=== PATIENT | female | born 1950 | race Caucasian/White ===

== ENCOUNTER → 2018-11-09 14:01 | Outpatient (CLI) | payer MEDICARE, OTHER, SELFPAY ==
[2016-07-24 13:09] VITALS: BMI 27.2
--- NOTE | 2018-11-09 14:10 | RAD_ITS ---
STUDY: X-RAY - PELVIS AND RIGHT HIP REASON FOR EXAM: Female, 68 years old. Pain, decreased range of motion TECHNIQUE: 3 views of the pelvis and hip. COMPARISON: None. FINDINGS: There is a non-specific bowel gas pattern. Normal visualized soft tissue structures. Normal bilateral iliac wings, sacroiliac joints and visualized sacrum. Normal bilateral superior and inferior pubic rami. Normal pubic symphysis. Normal bilateral ischial tuberosities. Normal visualized femoral head. Normal acetabulum. Normal hip joint. RAD/HIP, UNI W/ Pelvis 2-3 Views IMPRESSION: Normal x-ray examination of the pelvis and hip. Electronically Signed: Dedrick Hall MD at 14:33 EDT , Service support ,
== END ==
PROVIDERS: Family Provider Internal Medicine; PCP Internal Medicine; Referring Provider Anesthesiology Pain Medicine; Visit Provider Anesthesiology Pain Medicine
DX: M25.559 Pain in unspecified hip (principal)
CPT/HCPCS: 73502

== ENCOUNTER → 2018-11-23 16:56 | Outpatient (CLI) | payer MEDICARE, OTHER, SELFPAY ==
--- NOTE | 2018-11-23 17:30 | MRI_ITS ---
HISTORY:back and rt leg pain. Prior surgery in the early MR Spine Lumbar W/O Contrast Technique:Sagittal T1 and T2 and STIR and axial T1 and T2-weighted images # of images including paperwork:126 Comparison:none Findings: Vertebral body heights are preserved. Area of increased signal on both T1 and T2-weighted images within the L2 vertebral body compatible with a hemangioma.l The conus ends at the L1 level and appears within normal limits. L1-2:There is a central disc extrusion that effaces the ventral thecal sac. This measures approximately 4 mm AP by approximately 9 mm craniocaudad. This does extend approximately 3 mm below the superior endplate of L2. No canal stenosis. No neural foraminal narrowing or nerve root impingement L2-3:Mild disc desiccation. Mild annular bulge asymmetric to the left. No canal stenosis. Mild bilateral neural foraminal narrowing but no nerve impingement. Mild facet arthrosis L3-4:Disc desiccation. There is a diffuse annular bulge asymmetric to the right. Facet arthrosis. No canal stenosis. There is mild right neural foraminal narrowing. The disc material does efface the bilateral L4 nerve roots within the thecal sac slightly greater on the right L4-5:Disc desiccation. Diffuse annular bulge with broad-based central disc protrusion effacing the ventral thecal sac. Mild bilateral neural foraminal narrowing. Disc material does abut the L5 nerve roots within the thecal sac greater on the right L5-S1:Disc desiccation with Modic type II changes at the endplates. There is a left central and foraminal disc protrusion. Moderate left neural foraminal narrowing. There are also posterior osteophytes at this level. Disc material also extends into the right neural foramen. There is effacement of the right L5 nerve root within the foramen and as it exits and effacement of the left L5 nerve root as it exits the foramen. There is also minimal effacement of the left S1 nerve root as it exits the thecal sac. MRI/Spine Lumbar (Routine) IMPRESSION: L5-S1 left central and foraminal disc protrusion. Effacement of the right L5 nerve root within the foramen and as it exits the foramen and effacement of the left L5 nerve root as it exits the foramen. Minimal effacement left S1 nerve root as it exits the thecal sac L4-5 diffuse annular bulge with broad-based central disc protrusion. Disc material does abut the L5 nerve roots within the thecal sac greater on the right L3-4 diffuse annular bulge asymmetric to the right. Disc material does efface the bilateral L4 nerve roots within the thecal sac slightly greater on the right L1-2 central disc extrusion. No significant nerve root impingement at 1832 Reported and signed by: Dione Aguilar DO Electronically Signed: Dione Aguilar DO at 18:31 EDT Tel , Service support ,
== END ==
PROVIDERS: Family Provider Internal Medicine; PCP Internal Medicine; Referring Provider Anesthesiology Pain Medicine; Visit Provider Anesthesiology Pain Medicine
DX: M54.9 Dorsalgia, unspecified (principal); M79.604 Pain in right leg
CPT/HCPCS: 72148

== ENCOUNTER 2019-01-11 14:30 | Outpatient (RCR) | payer MEDICARE, OTHER, SELFPAY ==
[2016-07-24 13:09] VITALS: BMI 27.2
--- NOTE | 2018-11-25 10:02 | HP.PTEVAL_ITS ---
Patient's Visit Information FRED GRULLON is a 68 year old F referred to Physical Therapy by Kina Yee MD with a diagnosis of BACK PAIN. Date of Evaluation: 11/25/18 Physical Therapist: Lauren Champagne PT, Cert MDT - Visit Plan Frequency: 2-3x /Week Duration: 4-6 Weeks Plan: AQUATIC THERAPY FOR PAIN RELIEF, POSTURE CORRECTION/STRENGTHENING, INSTRUCTION IN APPROPRIATE BODY MECHANICS AND ACTIVITY MODIFICATIONS. DLS STARTING WITH A NEUTRAL SPINE PROGRESSING ROM TOLERATED. DWAYNE LE ROM, STRETCHING AND STRENGTHENING. HEP INSTRUCTION. 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 Disability: NO. Present symptoms: LOW BACK AND RIGHT HIP PAIN. NO NUMBNESS OR TINGLING. Present since: CHRONIC. Pain Scale: WORST 8/10, LEAST 2/10. Currently: 2/10. Commenced as a result of: CHRONIC LOW BACK PAIN BUT RIGHT HIP PAIN STARTED A LITTLE OVER A YEAR AGO AFTER A PROLONGED DRIVE (ABOUT 13 HOURS). Symptoms at onset: LOW BACK. Worse: WALKING, ANY LIFTING, BENDING, SWEEPING, PUSHING W/C'S FOR VERTERANS, SITTING. Better: HEAT, ICE, IBUPROFEN, BIOFREEZE. Disturbed sleep: YES. Previous history/Previous treatment: BACK SURGERY 1990 - DISCECTOMY. IN THE LAST YEAR HAS TRIED TWO CORTISONE INJECTIONS IN RIGHT HIP BUT DIDN'T HELP. 1ST LEANN IS PENDING NEXT WEEK. NO CHIROPRACTOR SINCE SURGERY. NO PHYSICAL THERAPY. Coughi ng/sneezing/straining: NEGATIVE. Gait: LIMPING ON RIGHT LE. Difficulty initiating urinatin: NO. Accidents: NO. Unexplained weight loss: NO. Imaging: RECENT RIGHT HIP AND PELVIC X-RAY WAS NORMAL. PMH: NIDDM, HTN, HIGH CHOLESTEROL, OSTEOPOROSIS, NEUROPATHY, DWAYNE ROTATOR CUFF REPAIRS. - Objective Sitting/Standing Posture: POOR. Lordosis: REDUCED. Lateral shift: NO. Relevant shift: N/A. Active Correction of posture: WORSE. Other Observations: INDEP GAIT INTO PT WITHOUT AD LIMPING ON THE RIGHT LE. INDEP TRANSFER SIT TO STAND WITHOUT UE ASSIST. Motor deficit: RIGHT LE 4/5, LEFT LE 5/5 EXCEPT LEFT HIP 4/5. Sensory deficit: NO - FEET NT. ROM deficit: DWAYNE LE'S WFL. Reflexes: 2/3 DWAYNE QUADS AND LEFT ACHILLES BUT ABSENT RIGHT ACHILLES. Dural Signs: NEGATIVE DWAYNE LE'S. Lumbar mvmt loss: flex - NIL. ext - CANDIE. R SG - MOD. L SG - MOD. Core strength: POOR. Palpation: NO ACUTE TENDERNESS WITH PALPATION OF LUMBOSACRAL REGION OR HIPS. - Goals Goal 1:: DECREASE C/O BACK AND LE SX'S Goal Time Frame: 4-6 Weeks Goal 2:: IMPROVE LIFTING, WALKING, SITTING, STANDING, SLEEP, TRAVEL AND HOMEMAKING FUNCTION Goal Time Frame: 4-6 Weeks Goal 3:: INSTRUCT IN PROPHYLAXIS Goal Time Frame: 4-6 Weeks - Rehabilitation Potential Rehabilitation Potential: Fair - Anticipated Interventions Patient/Client Instruction: Educate patient on: Condition, Plan of Care, Risk Factors, Benefits of Fitness Program For the Purpose of:: To improve self management Thank you for the opportunity to evaluate your patient. For Medicare and Medicare HMO plans, please review the plan of care and approve it. It will need to be FAXED BACK to us at [phone] for Medicare purposes. For Medicare only, by signing this I certify the plan of care. Please let me know if there are questions or concerns regarding this plan of care. Physician Signature: Date:
--- NOTE | 2019-04-14 14:54 | HP.PTDCSUM ---
HP - PT D/C Summary It has been my pleasure to treat FRED GRULLON under orders from Kina Yee MD, for the diagnosis of BACK PAIN for a total of 10 visit(s). Discharge Date: Please see the following information for a summary of their discharge status. - Subjective Subjective: My pain is about the same - Pain Lumbar Spine Pain Intensity (Out of 10): 0 R Hip Pain Intensity (Out of 10): 3 - Overall Improvement % Improvement: 30 - Objective Objective/Function: LBP still rated at 3/10 on this date. Pt does feel better overall. Pt notes she has made functional improvements with stairs and gait in general. Pt is I with HEP - Goals Goal 1:: DECREASE C/O BACK AND LE SX'S Goal Progress: Progressing Goal 2:: IMPROVE LIFTING, WALKING, SITTING, STANDING, SLEEP, TRAVEL AND HOMEMAKING FUNCTION Goal Progress: Goal Met Goal 3:: INSTRUCT IN PROPHYLAXIS Goal Progress: Goal Met - Plan Plan: Discontinue to HEP - D/C Information If there are questions or concerns regarding this patient's physical therapy, please feel free to call me at [phone]. Thank you for the referral of this patient. Sincerely, Lauren Champagne, PT, Cert MDT
== END 2019-01-11 19:00 | disposition home or self-care (01) ==
LOC: PT 14:30
PROVIDERS: Family Provider Internal Medicine; PCP Internal Medicine; Referring Provider Anesthesiology Pain Medicine; Visit Provider Anesthesiology Pain Medicine
DX: M54.9 Dorsalgia, unspecified (principal); M25.559 Pain in unspecified hip
CPT/HCPCS: 97113; 97162; 97530

== ENCOUNTER → 2019-03-14 13:00 | Outpatient (CLI) | payer MEDICARE, OTHER, SELFPAY ==
[2019-03-14 12:55] VITALS: BMI 27.2
--- NOTE | 2019-03-14 13:03 | RAD_ITS ---
STUDY: X-RAY - LUMBAR SPINE REASON FOR EXAM: Female, 68 years old. LOWER BACK PAIN TECHNIQUE: 4 view(s) of the lumbar spine were obtained. COMPARISON: MRI dated November 23, 2018 FINDINGS: There is straightening of the normal lumbar lordosis. There is no demonstrated segmental motion on flexion and extension. There is multilevel endplate spondylosis of the lumbar vertebrae. There is multi-level degenerative disc disease with multi-level disc space narrowing. The soft tissue structures are unremarkable. RAD/L/S Spine Min 4 Views IMPRESSION: Degenerative changes of the spine. Electronically Signed: Chris Mesa MD at 15:39 EST Tel , Service support ,
== END ==
PROVIDERS: Family Provider Internal Medicine; PCP Internal Medicine; Referring Provider Orthopaedic Surgery; Visit Provider Orthopaedic Surgery
DX: M54.5 Low back pain (principal)
CPT/HCPCS: 72110

== ENCOUNTER → 2019-12-22 16:54 | Outpatient (CLI) | payer MEDICARE, OTHER, SELFPAY ==
[2019-10-26 11:12] VITALS: BMI 27.1
--- NOTE | 2019-12-22 16:55 | MRI_ITS ---
HISTORY: Left hip pain. Bursitis for 6 months. No relief with therapy and injections. Technique: Axial T2 fat sat, coronal T1, coronal T2 fat sat were obtained through both limits. Axial T2 fat sat, axial STIR, coronal STIR images were obtained through the left hip. X-rays are available from November 09, 2018 through the right hip. 214 images. Findings: Abnormal increased T2-weighted signal is present within the muscle of the gluteus medius extending from the iliac wing to the greater trochanter. Minimal tendinosis is present over the greater trochanter on the right side. The abnormal signal within the muscle belly is not present on the right. The urinary bladder is decompressed. The uterus remains. Diverticulosis within the sigmoid colon. Bowel gas pattern is normal. No hip effusion. Marrow signal is normal. Both femoral heads are well-seated within their respective acetabulum. Cartilaginous surfaces are preserved. MRI/Lower Ext Joint Only (Routine) IMPRESSION: Bilateral gluteus medius tendinosis greater on the left than right. Additionally, however, there is evidence for tearing to the gluteus medius muscle with edema extending from the musculotendinous junction in the muscle towards the anterior origin of the muscle belly. This is an incomplete tear of only fibers of the muscle. There is no avulsion of the tendon. The dorsal aspect of this disease in the length of this disease is for 6 cm, however, the portion of the muscle involved is only 8 mm thick. at 0553 Reported and signed by: Jay Knapp MD Electronically Signed: Jay Knapp MD at 5:52 EDT Tel , Service support ,
== END ==
PROVIDERS: PCP Internal Medicine; Referring Provider Physician Assistant; Visit Provider Physician Assistant
DX: M70.62 Trochanteric bursitis, left hip (principal)
CPT/HCPCS: 73721

== ENCOUNTER → 2022-01-02 | Outpatient (CLI) | payer MEDICARE, OTHER, SELFPAY ==
[2022-01-02 17:19] LABS: Erythrocyte Sedimentation Rate 6 mm/hr (0-30)
[2022-01-02 17:43] LABS: Amylase 103 U/L (25-115); CRP < 2.90 mg/L (0.0-3.0); LDH 81 U/L (84-246); Lipase 680 U/L (73-393)
[2022-01-05 14:08] LABS: Anti-Centromere B Ab <0.2 AI (0.0-0.9); Anti-Chromatin <0.2 AI (0.0-0.9); Anti-Jo <0.2 AI (0.0-0.9); Anti-Scleroderma-70 AB <0.2 AI (0.0-0.9); RNP Ab <0.2 AI (0.0-0.9); SJOGREN'S Anti-SS-A test < 0.2 AI (0.0-0.9); SJOGREN'S Anti-SS-B test < 0.2 AI (0.0-0.9); Smith Ab <0.2 AI (0.0-0.9)
[2022-01-05 21:07] LABS: Endomysial Antibody IgA Negative (Negative)
[2022-01-06 15:08] LABS: Immunoglobulin A 388 mg/dL (64-422); t-Transglutaminase IgA <2 U/mL (0-3)
[2022-01-06 16:22] LABS: Anti-dsDNA Ab <1 IU/mL (0-9)
[2022-01-08 14:09] LABS: Albumin 3.8 g/dL (2.9-4.4); Alpha-1-Globulins 0.3 g/dL (0.0-0.4); Alpha-2-Globulins 0.8 g/dL (0.4-1.0); Cytoplasmic Ab (C-ANCA) 1:20 titer (Neg:<1:20); Gamma Globulin 1.5 g/dL (0.4-1.8); Immunoglobulin A 383 mg/dL (64-422); Immunoglobulin E 28 IU/mL (6-495); Immunoglobulin G 1300 mg/dL (586-1602); Immunoglobulin M 70 mg/dL (26-217); PROEL- TOTAL PROTEIN 7.7 g/dL (6.0-8.5)
[2022-01-09 20:31] LABS: Perinuclear Ab (P-ANCA) <1:20 titer (Neg:<1:20)
== END | disposition home or self-care (01) ==
LOC: LAB 15:32
PROVIDERS: PCP Internal Medicine; Referring Provider Internal Medicine Gastroenterology; Visit Provider Internal Medicine Gastroenterology
DX: R11.0 Nausea (principal); R19.7 Diarrhea, unspecified
CPT/HCPCS: 36415; 82150; 82784; 82785; 83516; 83615; 83690; 84165; 85652; 86140; 86225; 86235; 86255; 86256; 86334

== ENCOUNTER → 2022-01-19 | Outpatient (CLI) | payer MEDICARE, OTHER, SELFPAY ==
--- NOTE | 2022-01-19 11:32 | NM_ITS ---
CLINICAL: 71-year-old female with history of chronic nausea. SEMI-SOLID PHASE 99m Tc SULFUR COLLOID GASTRIC EMPTYING STUDY COMPARISON: None available FINDINGS: The patient was administered 1.1 mCi of 99m Tc sulfur colloid mixed with oatmeal and consumed per os. Image acquisitions in the anterior-posterior projections were obtained for 60 minutes. There is prompt visualization of the stomach. There is no gastroesophageal reflux identified. The T ? emptying was calculated to be 37.04 minutes, (Normal: 12-56 minutes). NM/Gastric Emptying Study IMPRESSION: 1. NORMAL 99m Tc sulfur colloid semi-solid phase (oatmeal) gastric emptying imaging examination. A. There is normal and preserved semi-solid phase gastric emptying compared to normal controls. (Ramon et al, J Nucl Med Tech 38: 186, 2010). Electronically Signed: Angel Salazar, at 13:50 EDT ,
== END | disposition home or self-care (01) ==
PROVIDERS: PCP Internal Medicine; Visit Provider Internal Medicine Gastroenterology
DX: K31.84 Gastroparesis (principal)
CPT/HCPCS: 78264; A9541

== ENCOUNTER → 2023-12-22 | Outpatient (CLI) | payer MEDICARE, OTHER, SELFPAY | END | disposition home or self-care (01) | LOC: SL 20:56 | PROVIDERS: PCP Internal Medicine; Referring Provider Internal Medicine; Visit Provider Internal Medicine | DX: G47.33 Obstructive sleep apnea (adult) (pediatric) (principal) | CPT/HCPCS: 95810 ==